=== PATIENT | female | born 1935 ===

== ENCOUNTER 2021-02-28 08:26 | Outpatient (REF) | payer MEDICARE, MEDICAID, SELFPAY ==
--- NOTE | 2021-02-28 11:53 | MHC.AU.AHA ---
Adult Audiological Evaluation Date of Visit: 02/28/21 Making Line Worker Used: Translation by family member. Reason for Appointment: Patient was seen for an audiological evaluation to monitor the status of her hearing loss. 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 She notes that she gets discharge from the right ear so she has not been using the right hearing aid. Has discussed surgery to repair TM with her special education professor, but has decided she does not want to go under general anesthesia. Since her last visit, she reports that she began noticing tinnitus in the right ear ~ 1 year ago. She denies any changes to her medical history. Previous Hearing Test Results: [facility] [place], 06/23/2019- Mild to profound mixed hearing loss in the left ear. Moderate to profound mixed hearing loss in the right ear. Ear History: Recent Ear Drainage: Right Ear Ear Infections in Childhood: Right Ear Bothersome Tinnitus/Ringing/Noises in Ears: Right Ear Medical History: Medical History: Cancer High Blood Pressure Medical History: Stomach cancer treated surgically. Replacement of both knees. Hearing Instrument History- Right Ear: Director Diversity: [employer] Model: HengZhieLingoda [id number] Serial Number: [id number] Battery Size: 312 Repair Warranty: 03/25/2020 Loss and Damage Warranty: 03/25/2020 Dispensed By: [facility] Date of Fittin01/07/2018 Hearing Instrument History- Left Ear: Director Diversity: [email or web address] Model: HengZhieo [id number] Serial Number: [id number] Battery Size: 312 Warranty: 03/25/2020 Loss and Damage Warranty: 03/25/2020 Dispensed By: [facility] Date of Fittin01/07/2018 Otoscopy: Right Ear: Large TM perforation visualized. Clear canal. Left Ear: Unremarkable Tympanometry: Tympanometry performed due to: Prior history of tympanic membrane perforation Right Ear: Non-compliant Middle Ear System (Type B), Tympanic Membrane Perforation Left Ear: Normal Middle Ear System (Type A) Hearing Evaluation: Transducer(s) Used: Insert Earphones, Bone Conduction Method: Conventional Audiometry Stimuli Used: Pure Tones Right Ear: Description of Hearing: Moderately severe hearing loss at 250 Hz, rising to moderate mixed hearing loss at 500 Hz, moderate to moderately severe sensorineural hearing loss from 3058-2387 Hz, severe mixed hearing loss at 4000 Hz, and severe hearing loss from 9822-7231 Hz. Left Ear: Description of Hearing: Mild hearing loss at 250, rising to normal hearing at 500 Hz, and sloping to a mild to profound sensorineural hearing loss from 7313-0330 Hz. Speech Recognition Threshold (SRT): Method Used: Not performed at today's visit as patient is a non-Prydeinig speaker. Comparison: Compared to the most recent evaluation: Hearing is stable. Recommendations: Audiological re-evaluation in one year. Hearing aid maintenance performed today. Diagnosis: Primary Diagnosis: H90.A31 Mixed HL, Unilateral Right Ear, W/Restricted Contralateral Secondary Diagnosis: H90.A22 SNHL, Unilatearl, Left Ear, W/Restricted Contralateral Hearing Services Performed: Comprehensive Audiological Evaluation (CPT 05838) Tympanometry (CPT 70402) Signature: Provider: Idalia An, CCC-A
== END 2021-02-28 08:27 | disposition home or self-care (01) ==
LOC: HO.SH 08:26
PROVIDERS: Visit Provider Internal Medicine
DX: Z46.1 Encounter for fitting and adjustment of hearing aid (principal); H90.A31 Mixed conductive and sensorineural hearing loss, unilateral, right ear with restricted hearing on the contralateral side; H90.A22 Sensorineural hearing loss, unilateral, left ear, with restricted hearing on the contralateral side
CPT/HCPCS: 92557; 92567; 92593; 99499; V5266

== ENCOUNTER 2023-04-05 08:46 | Outpatient (REF) | payer MEDICARE, MEDICAID, SELFPAY ==
--- NOTE | 2023-04-05 14:05 | MHC.AU.HFU ---
Hearing Instrument Follow-Up- Binaural Date of Visit: 04/05/23 Right Ear: Karen Lindsay [id number], SN: [id number] Repair Warranty: 03/25/2020 Loss and Damage Warranty: 03/25/2020 Battery Size: 312 Ventilated Rib Fitter: 1xS Type of Mold: SlimTip- SN: [id number] Type of Wax Guard: Cerustop Dispensed By: [facility] Date of Fittin01/07/2018 Left Ear: Karen Lindsay [id number], SN: [id number] Repair Warranty: 03/25/2020 Loss and Damage Warranty: 03/25/2020 Battery Size: 312 Ventilated Rib Fitter: 1xS Type of Dome: Small power dome Type of Wax Guard: Cerustop Dispensed By: [facility] Date of Fittin01/07/2018 Follow-Up Summary: The patient is here for a hearing aid check following an updated hearing evaluation, accompanied by her son who interpreted today. Hearing is stable bilaterally. See audiogram for report. The patient wears her left hearing aid more often and generally does not wear her right hearing aid. She prefers not to wear her right hearing aid due to ear drainage. She has a right TM perforation which she prefers not to surgically correct. Discussed realistic expectations with using one hearing aid. She indicated understanding. I changed the wax guards bilaterally and left dome and brushed the microphone ports bilaterally. Listening check reveals clear sound. I re-programmed her hearing aids to today's audiogram and re-ran the feedback day spa manager. The patient reported clear volume bilaterally. Reviewed use of volume control. The [place] now [place] so she will look into transferring care to either [facility] or [facility] and [facility]. I encouraged her to establish audiological and otologic care locally. She is eligible for new hearing aids and will pursue this locally. Diagnosis Code(s): Primary Diagnosis: H90.6 Mixed Hearing Loss, Bilateral Secondary Diagnosis: H93.11 Tinnitus, Right Ear Signature: Provider: Idalia Dean, [facility]
== END 2023-04-05 08:47 | disposition home or self-care (01) ==
LOC: HO.SH 08:46
PROVIDERS: Visit Provider Internal Medicine
DX: Z01.118 Encounter for examination of ears and hearing with other abnormal findings (principal); Z46.1 Encounter for fitting and adjustment of hearing aid; H90.6 Mixed conductive and sensorineural hearing loss, bilateral; H93.11 Tinnitus, right ear
CPT/HCPCS: 92553; 92555; 92567; 92593; 99499; V5020; V5266

== ENCOUNTER 2023-11-21 15:36 | Outpatient (REF) | payer MEDICARE, MEDICAID, SELFPAY ==
--- NOTE | 2023-11-22 08:21 | MHC.AU.MED ---
Medical Clearance for Hearing Instrumentation Date: 11/22/23 Patient Name: Cody Nam Date of : 1935 Primary Care Provider: Referring Provider: Essnece Hickey MD We have seen your patient on 11/22/23 and have determined that they are a candidate for amplification (See accompanying report). Specifically, they would benefit from: Hearing aid use in both ears There is a statute that addresses Medical Evaluation Requirements prior to fitting a patient with a hearing aid. According to [place] statute 265 CMR:6.03(1), (a) General. Except as provided in 265 CMR 6.03(1)(b), a ratings analyst shall not sell a hearing aid unless the prospective user has presented to the ratings analyst a written statement signed by a licensed physician that states that the patient's hearing loss has been medically evaluated and the patient may be considered a candidate for a hearing aid. The medical evaluation must have taken place within the preceding six months. Please note: Due to the [place] Statute referenced above, we cannot accept a signature other than that of a licensed physician. AMMONIA BOX OPERATOR and PA signatures cannot be accepted. I am in agreement with the above recommendation. There is no medical contraindication for hearing instrumentation. Physician Signature Date Physician Name (Printed)
--- NOTE | 2023-11-22 09:05 | MHC.AU.HA1 ---
Hearing Aid Evaluation Date of Visit: 11/22/23 Historical Information: Description of Hearing: Right ear: moderate to profound mixed hearing loss Left ear: mild rising to normal sloping to profound sensorineural hearing loss Current personal amplification information, if applicable: Phonak Audeo B50 312 Summary: Cody would like to pursue a trial with updated amplification, as hers are over 5 years old and she has noticed increased difficulty hearing lately. Discussed style options and agreed to continue with the Audeo style that she is accustomed to. She had previously worn an earmold in her right ear due to excessive drainage in that ear, but drainage is less common now and she only wears the right aid occasionally, so we agreed to try domes on both aids again. Selected Audeo L-70 Rs in silver. Medical clearance to be submitted, will call patient once hearing aids arrive. Hearing Aid Prescription: Based on the individual?s shared listening needs, communication environments, dexterity, desire for connectivity, and personal preferences, the following prescription for amplification has been made: Right ear: Make, Model, Color: Phonak Audeo L70 R Battery Size: Rechargeable Returns Supervisor/Slim Tube: 1M Type of Earmold/Dome/CShell/SlimTip: sm power Left ear: Left ear prescription to be same as Right Hearing Aid above: Make, Model, Color: Phonak Audeo L70 R Battery Size: Rechargeable Returns Supervisor/Slim Tube: 1M Type of Earmold/Dome/CShell/SlimTip: sm power Accessories/Assistive Technology Recommended: Microwave Oven Assembler Plan of Care: Patient wishes to purchase hearing aids as prescribed Action Taken/Action Needed: Medical Clearance to be requested from PCP/ENT Hearing Instrument Fitting to be scheduled when materials arrive Signature: Provider: Idalia North, CCC-A
== END 2023-11-21 15:37 | disposition home or self-care (01) ==
LOC: HO.SH 15:36
PROVIDERS: Visit Provider Internal Medicine
DX: Z01.118 Encounter for examination of ears and hearing with other abnormal findings (principal); Z46.1 Encounter for fitting and adjustment of hearing aid; H90.A31 Mixed conductive and sensorineural hearing loss, unilateral, right ear with restricted hearing on the contralateral side
CPT/HCPCS: 92553; 92591

== ENCOUNTER 2023-12-12 14:25 | Outpatient (REF) | payer MEDICARE, MEDICAID, SELFPAY ==
--- NOTE | 2023-12-12 15:24 | MHC.AU.HA2 ---
Hearing Instrument Fitting- Adult- Binaural Date of Visit: 12/12/23 Hearing Instruments Dispensed: Right Ear: Make, Model, Color, Serial Number: Phonak Paolaeo L70 R Giovanni Gonzalez S#[id number] Mushroom Cutter Repair Warranty: 12/27/2026 Mushroom Cutter Loss and Damage Warranty: 12/27/2026 Battery Size: Rechargeable Drapery Hand/Slim Tube: M Drapery Hand 4.0 1R Earmold/Dome/CShell/SlimTip: sm power Type of Wax Guard: Cerustop Left Ear: Make, Model, Color, Serial Number: Phonanabelle Guevaraeo L70 R Giovanni Gonzalez S#[id number] Mushroom Cutter Repair Warranty: 12/27/2026 Mushroom Cutter Loss and Damage Warranty: Battery Size: Rechargeable Drapery Hand/Slim Tube: 1M M Drapery Hand 4.0 1L Earmold/Dome/CShell/SlimTip: sm power Type of Wax Guard: Cerushield Accessories/Assistive Technology: Phonak Surgical Coordinator Ease S#[id number] Summary of Fitting: Here for fitting of binaural Phonak Audeo L70 R HAs. Accompanied by son, who interpreted. Verified to DSL V5 Adult targets. Good subjective comfort and benefit reported. Practiced insertion and removal. Demonstrated textile bag sewer use. Reviewed dome and wax guard change. Longtime hearing aid user. Recommendations: Recommendations: Hearing instrument care and maintenance were discussed and practiced. A hearing instrument follow-up was scheduled. Diagnosis Code(s): Primary Diagnosis: H90.A31 Mixed HL, Unilateral Right Ear, W/Restricted Contralateral Secondary Diagnosis: H90.A22 SNHL, Unilatearl, Left Ear, W/Restricted Contralateral Hearing Signature: Provider: Santy Donovan, [facility]
== END 2023-12-12 14:26 | disposition home or self-care (01) ==
LOC: HO.HAP 14:25
PROVIDERS: Visit Provider Nurse Practitioner Family
DX: Z46.1 Encounter for fitting and adjustment of hearing aid (principal); H90.A31 Mixed conductive and sensorineural hearing loss, unilateral, right ear with restricted hearing on the contralateral side; H90.A22 Sensorineural hearing loss, unilateral, left ear, with restricted hearing on the contralateral side
CPT/HCPCS: V5011; V5020; V5160; V5261

== ENCOUNTER 2023-12-27 14:21 | Outpatient (REF) | payer SELFPAY ==
--- NOTE | 2023-12-27 14:53 | MHC.AU.HA3 ---
Hearing Instrument Follow-Up- Binaural Date of Visit: 12/27/23 Right Ear: Model Fam, Color, Serial Number: Karen Saenz70 R Giovanni Gonzalez S#[id number] Lawn Service Worker Repair Warranty: 12/27/2026 Lawn Service Worker Loss and Damage Warranty: 12/27/2026 Battery Size: Rechargeable Mold Engraver/Slim Tube: M Mold Engraver 4.0 1R Earmold/Dome/CShell/SlimTip:sm vented Type of Wax Guard: Cerushield Dispensed By: [facility] Date of Fittin12/12/2023 Left Ear: Fam, , Color, Serial Number: Karen Saenz70 R Giovanni Gonzalez S#[id number] Lawn Service Worker Repair Warranty: 12/27/2026 Lawn Service Worker Loss and Damage Warranty: Battery Size: Rechargeable Mold Engraver/Slim Tube: M Mold Engraver 4.0 1L Earmold/Dome/CShell/SlimTip: sm power Type of Wax Guard: Cerushield Dispensed By: [facility] Date of Fittin12/12/2023 Follow-Up Summary: Here with son for hearing aid follow up. Reports the power dome doesn't fit well in the right ear, too big. Had to go to a small vented as there is no smaller power option. Fit looks good, no feedback observed in office. Follow up as needed. Recommendations: Recommendations: Please contact our clinic with any questions or concerns. Diagnosis Code(s): Primary Diagnosis: H90.A22 SNHL, Unilatearl, Left Ear, W/Restricted Contralateral Hearing Secondary Diagnosis: H90.A31 Mixed HL, Unilateral Right Ear, W/Restricted Contralateral Signature: Provider: Santy Donovan, [facility]
== END 2023-12-27 14:22 | disposition home or self-care (01) ==
LOC: HO.HAP 14:21
PROVIDERS: Visit Provider Internal Medicine
DX: Z46.1 Encounter for fitting and adjustment of hearing aid (principal); H90.A22 Sensorineural hearing loss, unilateral, left ear, with restricted hearing on the contralateral side
CPT/HCPCS: V5267